=== PATIENT | male | born 1935 | race Asian ===

== ENCOUNTER 2024-04-21 19:23 | Inpatient (IN) | payer MEDICARE, OTHER ==
[~2024-04-21] VITALS: Ht 170.2 cm; Wt 75.6 kg
[~2024-04-21 19:23] MED LIST: ALFU10TA30 PO; ALLO100T PO; ASPI81TA87 PO; ATOR10TA PO; FINA-27 PO; FISH1CAP27 PO; FLUT1DIS IH; HYDR12.54 PO; METAMUCIL PO; METO50TA18 PO; NAPR-1195 PO; NITR0.4T50 SL; PANT-31 PO; TELM40 PO
[2024-04-21 19:26] VITALS: PULSE 118; PULSE 148; RESP 20; O2SAT 91
[2024-04-21] MEDS ORDERED: FentaNYL CIT 1000MCG/0.9% NACL 100 ML IV PRN (19:30)
[2024-04-21] MEDS ORDERED: 0.9% SODIUM CHLORIDE 10 ML SYRINGE IVP PRN (19:30)
[2024-04-21] MEDS: ROCURONIUM BROMIDE 10 MG/ML 5 ML VIAL IVP ONE (19:54)
[2024-04-21] MEDS: ETOMIDATE 2 MG/ML 10 ML VIAL IVP ONE (19:54)
[2024-04-21 19:58] LABS: BASOPHILS % (AUTO) 0.3 % (0.0-2.0); EOSINOPHILS % (AUTO) 0.2 % (1.0-6.0); HEMOGLOBIN 12.6 g/dL (13.5-17.5); LYMPHOCYTES # (AUTO) 0.7 K/uL (1.0-4.8); LYMPHOCYTES % (AUTO) 10.4 % (22.0-44.0); MEAN CORPUSCULAR HEMOGLOBIN 34.9 pg (26.0-34.0); MEAN CORPUSCULAR HGB CONC 32.2 G/dL (31.0-37.0); MEAN CORPUSCULAR VOLUME 109 fL (80-100); MONOCYTES # (AUTO) 0.5 K/uL (0.1-1.0); MONOCYTES % (AUTO) 7.1 % (2.0-9.0); NEUTROPHILS # (AUTO) 5.9 K/uL (1.8-7.7); PLATELET COUNT (AUTO) 203 K/uL (150-450); RED CELL DISTRIBUTION WIDTH 18.1 % (11.5-14.5); WHITE BLOOD COUNT (AUTO) 7.2 K/uL (4.5-11.0)
[2024-04-21 20:03] LABS: PROTHROMBIN TIME 11.6 SEC (9.4-11.6)
[2024-04-21 20:16] LABS: ANION GAP 11 mmol/L (8-16); CALCIUM, TOTAL 6.4 mg/dL (8.8-10.5); CARBON DIOXIDE 20 mmol/L (22-29); CHLORIDE 123 mmol/L (98-107); CREATININE 1.46 mg/dL (0.60-1.30); GLOMERULAR FILTR. RATE CALC 46 mL/min (>60); GLUCOSE,RANDOM 134 mg/dL (70-110); LACTIC ACID 2.1 mmol/L (0.4-2.0); POTASSIUM 3.9 mmol/L (3.5-5.1); SODIUM SERUM 154 mmol/L (136-145); UREA NITROGEN, BLOOD 42 mg/dL (7-18)
[2024-04-21 20:17] LABS: RBC MORPHOLOGY COMMENT ABNORMAL RBC MORPH
[2024-04-21] MEDS: PHENYLEPHRINE 200 MG/D5%-WATER 250 ML IV PRN (20:58)
[2024-04-21] MEDS: ALBUMIN HUMAN 5%-12.5GM/250ML 250 ML IV ONE (21:27)
[2024-04-21] MEDS: ACETAMINOPHEN 1000 MG/ISO-OSM 100 ML IV ONE (21:45)
[2024-04-21] MEDS: PROPOFOL 1000 MG/ISO-OSM 100 ML IV PRN (21:47)
[2024-04-21] MEDS: NOREPINEPHRINE 8 MG/0.9 % NACL 250 ML IV PRN (21:48)
[2024-04-21] MEDS: VASOPRESSIN 40 UNITS in DEXTROSE 5%-WATER 98 ML IV PRN (21:49)
[2024-04-21] MEDS: SODIUM CHLORIDE 0.9% 1,600 ML IV ONE (22:00)
[2024-04-21] MEDS ORDERED: IOHEXOL 350 MG/ML 100 ML VIAL ONE (22:04)
[2024-04-21] MEDS ORDERED: SODIUM CHLORIDE 0.9% 100 ML ONE (22:04)
[2024-04-21 22:24] VITALS: PULSE 109; RESP 20; O2SAT 90
[2024-04-21] MEDS: AMPICILLIN SODIUM/SULBACTAM NA 3 GM in SODIUM CHLORIDE 0.9% 100 ML IV ONE (22:32)
[2024-04-21] MEDS: RINGERS SOLUTION,LACTATED 1,000 ML IV ONE (22:38)
[2024-04-21 22:53] LABS: ABG BASE EXCESS -8.7 mmol/L (-2.0-3.0); ABG CARBOXYHEMOGLOBIN 0.2 % (0.5-1.5); ABG HCO3 17.8 mmol/L (21.0-28.0); ABG METHEMOGLOBIN 1.1 % (0.0-1.5); ABG OXYGEN CONTENT 15.3 mL/dL (15.0-23.0); ABG OXYGEN SATURATION 91.8 % (94.0-98.0); ABG OXYHEMOGLOBIN 90.6 % (94.0-98.0); ABG PCO2 44 mmHg (32.0-48.0); ABG PH 7.247 (7.350-7.450); O2 DEVICE,BLOOD GAS VENTILATOR (ROOM AIR); PO2, ARTERIAL BG 81.4 mmHg (83.0-108.0); SITE, BLOOD GAS RT RADIAL; SOURCE, BLOOD GAS ARTERIAL; TEMPERATURE, FAHRENHEIT, BG 101.6 FAHREN (96.0-98.6)
[2024-04-21 22:54] LABS: PEEP,BG 5 cm H2O; SPONTANEOUS VT, BG 458 ml; VT, ABG 450 ml
[2024-04-22] VITALS (13 sets, daily range): BP systolic 62–121; BP diastolic 19–88; PULSE 7–110; RESP 20–22; TEMP 87.1–100.7; O2SAT 0–92
[2024-04-22] MEDS ORDERED: ONDANSETRON HCL 4 MG/2 ML VIAL IVP PRN
[2024-04-22] MEDS ORDERED: IPRATROPIUM BROMIDE 0.5 MG/2.5 ML NEB SOLUTION NEB PRN
[2024-04-22] MEDS ORDERED: BISACODYL 10 MG RECTAL RECTAL SUPPOSITORY PR PRN
[2024-04-22] MEDS ORDERED: ALBUTEROL SULFATE 2.5 MG/0.5 ML NEB SOLUTION NEB PRN
[2024-04-22] MEDS ORDERED: MAGNESIUM HYDROXIDE SUSPENSION 30 ML UDCUP PO PRN
[2024-04-22] MEDS ORDERED: ZOLPIDEM TARTRATE 5 MG TABLET PO PRN
[2024-04-22] MEDS ORDERED: DEXTROSE 5%-WATER 1,000 ML IV ONE (03:59)
[2024-04-22] MEDS: DEXTROSE 5%-0.9% SODIUM CHL 1,000 ML IV ONE (04:19)
[2024-04-22 06:07] LABS: BASOPHILS % (AUTO) 0.3 % (0.0-2.0); EOSINOPHILS % (AUTO) 0.4 % (1.0-6.0); HEMATOCRIT 39.3 % (41-53); HEMOGLOBIN 12.7 g/dL (13.5-17.5); LYMPHOCYTES % (AUTO) 21.7 % (22.0-44.0); MEAN CORPUSCULAR HEMOGLOBIN 35.5 pg (26.0-34.0); MEAN CORPUSCULAR HGB CONC 32.2 G/dL (31.0-37.0); MEAN CORPUSCULAR VOLUME 110 fL (80-100); MONOCYTES # (AUTO) 0.1 K/uL (0.1-1.0); MONOCYTES % (AUTO) 1.9 % (2.0-9.0); NEUTROPHILS # (AUTO) 3.6 K/uL (1.8-7.7); NEUTROPHILS % (AUTO) 75.7 % (40.0-70.0); PLATELET COUNT (AUTO) 180 K/uL (150-450); RED BLOOD CELL COUNT(AUTO) 3.57 MIL/uL (4.50-5.90); WHITE BLOOD COUNT (AUTO) 4.8 K/uL (4.5-11.0)
[2024-04-22 06:11] LABS: ANION GAP 15 mmol/L (8-16); CALCIUM, TOTAL 9.1 mg/dL (8.8-10.5); CARBON DIOXIDE 20 mmol/L (22-29); CHLORIDE 116 mmol/L (98-107); CREATININE 2.54 mg/dL (0.60-1.30); GLOMERULAR FILTR. RATE CALC 24 mL/min (>60); GLUCOSE,RANDOM 169 mg/dL (70-110); POTASSIUM 5.9 mmol/L (3.5-5.1); SODIUM SERUM 151 mmol/L (136-145); UREA NITROGEN, BLOOD 61 mg/dL (7-18)
[2024-04-22 06:22] LABS: ALANINE AMINOTRANSFERASE 305 U/L (12-78); ALKALINE PHOSPHATASE 126 U/L (46-116); ASPARTATE AMINOTRANSFERASE 322 U/L (15-37); BILIRUBIN,TOTAL 2.2 mg/dL (0.1-1.0); CREATINE KINASE, TOTAL ONLY 397 U/L (39-308); TOTAL PROTEIN, SERUM 6.3 g/dL (6.4-8.2)
[2024-04-22 06:27] LABS: TROPONIN I-HIGH SENSITIVITY 572 ng/L (<76)
[2024-04-22 06:53] LABS: RBC MORPHOLOGY COMMENT ABNORMAL RBC MORPH
[2024-04-22] MEDS: DOPamine 400MG/D5W[STANDARD] 250 ML IV PRN ×2 (07:07→15:30)
[2024-04-22 08:21] LABS: ABG BASE EXCESS -12.4 mmol/L (-2.0-3.0); ABG METHEMOGLOBIN 0.3 % (0.0-1.5); ABG OXYGEN CONTENT 15.6 mL/dL (15.0-23.0); ABG OXYHEMOGLOBIN 83.8 % (94.0-98.0); ABG PCO2 35 mmHg (32.0-48.0); ABG PH 7.252 (7.350-7.450); ABG TOTAL HEMOGLOBIN 13.2 G/dL (13.5-17.5); PO2, ARTERIAL BG 43.9 mmHg (83.0-108.0); SOURCE, BLOOD GAS ARTERIAL; TEMPERATURE, FAHRENHEIT, BG 91.3 FAHREN (96.0-98.6)
[2024-04-22 08:22] LABS: ABG OXYGEN SATURATION 84.1 % (94.0-98.0); ALLEN TEST, BLOOD GAS Positive; O2 DEVICE,BLOOD GAS VENTILATOR (ROOM AIR); PEEP,BG 10 cm H2O; SITE, BLOOD GAS RT RADIAL; SPONTANEOUS VT, BG 493 ml; VT, ABG 450 ml
[2024-04-22] MEDS ORDERED: SODIUM CHLORIDE 0.9% 500 ML IV ONE ×2 (08:36→12:44)
[2024-04-22] MEDS: SODIUM BICARBONATE 75 MEQ in DEXTROSE 5%-WATER 1,000 ML IV ONE (10:06)
[2024-04-22] MEDS: PANTOPRAZOLE SODIUM 40 MG/VIAL IVP SCH (10:18)
[2024-04-22] MEDS: NOREPINEPHRINE 8 MG/0.9 % NACL 250 ML IV PRN (10:47)
[2024-04-22] MEDS: VASOPRESSIN 40 UNITS in DEXTROSE 5%-WATER 98 ML IV PRN (10:53)
[2024-04-22] MEDS: PHENYLEPHRINE 200 MG/D5%-WATER 250 ML IV PRN (10:55)
[2024-04-22] MEDS ORDERED: FUROSEMIDE 40 MG/4 ML VIAL IVP SCH (11:00)
[2024-04-22] MEDS: EPINEPHrine 5 MG in DEXTROSE 5%-WATER 245 ML IV PRN (12:33)
[2024-04-22] MEDS: PIPERACILLIN SODIUM/TAZOBACTAM 2.25 GM in DEXTROSE 5%-WATER 50 ML IV SCH (12:52)
[2024-04-22 13:05] LABS: ALBUMIN 1.7 g/dL (3.4-5.0); BILIRUBIN,TOTAL 2.7 mg/dL (0.1-1.0); CALCIUM, TOTAL 7.9 mg/dL (8.8-10.5); CREATININE 2.39 mg/dL (0.60-1.30); MAGNESIUM 2.3 mg/dL (1.80-2.40); PHOSPHORUS 6.7 mg/dL (2.5-4.9); POTASSIUM 4.8 mmol/L (3.5-5.1); TOTAL PROTEIN, SERUM 5.8 g/dL (6.4-8.2)
[2024-04-22] MEDS ORDERED: INSULIN LISPRO 100 UNITS/ML SQ PRN (14:00)
[2024-04-22] MEDS ORDERED: DEXTROSE 50%-WATER 25 GM/50 ML SYRINGE IVP PRN (14:00)
[2024-04-22 16:19] LABS: ABG TOTAL HEMOGLOBIN 11.8 G/dL (13.5-17.5); SOURCE, BLOOD GAS ARTERIAL; TEMPERATURE, FAHRENHEIT, BG 87.2 FAHREN (96.0-98.6)
[2024-04-22 16:21] LABS: ABG CARBOXYHEMOGLOBIN 0.2 % (0.5-1.5); ABG HCO3 9.8 mmol/L (21.0-28.0); ABG OXYGEN CONTENT 13.2 mL/dL (15.0-23.0); ABG OXYHEMOGLOBIN 79.4 % (94.0-98.0); ABG PCO2 38 mmHg (32.0-48.0)
[2024-04-22 16:25] LABS: ABG OXYGEN SATURATION 80.4 % (94.0-98.0); ABG PH 7.056 (7.350-7.450); O2 DEVICE,BLOOD GAS VENTILATOR (ROOM AIR); PO2, ARTERIAL BG 39.1 mmHg (83.0-108.0); SITE, BLOOD GAS RT BRACHIAL
[2024-04-22 16:26] LABS: PEEP,BG 12 cm H2O; SPONTANEOUS VT, BG 537 ml; VT, ABG 450 ml
[2024-04-22 17:16] LABS: GLUCOMETER DEV NAME(LOC) ICU.S6; GLUCOSE,POINT OF CARE 247 MG/DL (70-110)
[2024-04-22 20:06] LABS: ABG CARBOXYHEMOGLOBIN 0.3 % (0.5-1.5); ABG HCO3 5.9 mmol/L (21.0-28.0); ABG METHEMOGLOBIN 0.3 % (0.0-1.5); ABG OXYGEN CONTENT 9.8 mL/dL (15.0-23.0); ABG OXYHEMOGLOBIN 65.4 % (94.0-98.0); ABG PCO2 46 mmHg (32.0-48.0); ABG TOTAL HEMOGLOBIN 10.6 G/dL (13.5-17.5); SOURCE, BLOOD GAS ARTERIAL; TEMPERATURE, FAHRENHEIT, BG 91.2 FAHREN (96.0-98.6)
[2024-04-22 20:10] LABS: ABG PH 6.851 (7.350-7.450)
[2024-04-22 20:11] LABS: ABG A-A DIFF O2 636.9 mmHg (10-20.0); ABG OXYGEN SATURATION 65.8 % (94.0-98.0); O2 DEVICE,BLOOD GAS VENTILATOR (ROOM AIR); SITE, BLOOD GAS RT BRACHIAL
[2024-04-22 20:12] LABS: PEEP,BG 12 cm H2O; SPONTANEOUS VT, BG 501 ml; VT, ABG 501 ml
[2024-04-22 20:45] LABS: GLUCOMETER DEV NAME(LOC) ICU.S6; GLUCOSE,POINT OF CARE 269 MG/DL (70-110)
== END 2024-04-23 | DRG 871 ==
LOC: EMS 19:24 → EDH 23:26 → ICU 04-22 00:47
PROVIDERS: ADMIT Hospitalist; ATTEND Hospitalist
PROC: 5A1945Z Respiratory Ventilation, 24-96 Consecutive Hours (ICD-10-PCS; principal; 2024-04-21)
PROC: 0BH17EZ Insertion of Endotracheal Airway into Trachea, Via Natural or Artificial Opening (ICD-10-PCS; 2024-04-21)
PROC: 5A12012 Performance of Cardiac Output, Single, Manual (ICD-10-PCS; 2024-04-21)
PROC: 06HY33Z Insertion of Infusion Device into Lower Vein, Percutaneous Approach (ICD-10-PCS; 2024-04-22)
DX: A41.9 Sepsis, unspecified organism (principal); J69.0 Pneumonitis due to inhalation of food and vomit; R65.21 Severe sepsis with septic shock; J96.01 Acute respiratory failure with hypoxia; E87.0 Hyperosmolality and hypernatremia; E87.20 Acidosis, unspecified; I13.0 Hypertensive heart and chronic kidney disease with heart failure and stage 1 through stage 4 chronic kidney disease, or unspecified chronic kidney disease; I50.32 Chronic diastolic (congestive) heart failure; N17.9 Acute kidney failure, unspecified; E11.22 Type 2 diabetes mellitus with diabetic chronic kidney disease; I46.9 Cardiac arrest, cause unspecified; E78.5 Hyperlipidemia, unspecified; E87.5 Hyperkalemia; I25.10 Atherosclerotic heart disease of native coronary artery without angina pectoris; N18.30 Chronic kidney disease, stage 3 unspecified; M10.9 Gout, unspecified; N40.0 Benign prostatic hyperplasia without lower urinary tract symptoms; Z86.74 Personal history of sudden cardiac arrest; Z88.2 Allergy status to sulfonamides; Z88.6 Allergy status to analgesic agent
CPT/HCPCS: 36600; 71045; 80048; 80053; 82550; 82805; 82962; 83605; 83735; 84100; 84145; 84484; 85025; 85610; 87040; 87070; 87081; 87186; 93005; 93306; 93970; 94002; 94003; 99291; J0131; J0171; J0295; J1265; J2370; J2470; J2543; J2704; J3010; J3490; J7040; J7042; J7050; J7060; J7120; P9041; 36415-L1; 36415-TC